=== PATIENT | female | born 2000 | race Caucasian/White ===

== ENCOUNTER 2020-12-18 11:51 | Emergency (ER) | payer OTHER ==
[~2020-12-18 11:51] MED LIST: BENTYL10 MG PO
[2020-12-18 14:01] LABS: BILIRUBIN NEGATIVE (NEGATIVE); BLOOD NEGATIVE Ery/uL (NEGATIVE); CLARITY CLEAR (CLEAR); COLOR YELLOW (YELLOW); GLUCOSE (U) NORMAL (NORMAL); LEUKOCYTES NEGATIVE Leu/uL (NEGATIVE); NITRITE NEGATIVE (NEGATIVE); PROTEIN NEGATIVE (NEGATIVE); UROBILINOGEN 0.2 mg/dL (0.2-1.0); pH 6.5 (5.0-9.0)
[2020-12-18] MEDS ORDERED: COLACE100 MG PO (15:10)
[2020-12-18] MEDS ORDERED: MILK OF MA400 MG/5 M PO (15:10)
== END 2020-12-18 15:45 | disposition home or self-care (01) ==
LOC: FER 11:51
PROVIDERS: Emergency Medicine
DX: O99.611 Diseases of the digestive system complicating pregnancy, first trimester (principal); K59.00 Constipation, unspecified; O21.9 Vomiting of pregnancy, unspecified; O99.891 Other specified diseases and conditions complicating pregnancy; R63.0 Anorexia; Z87.19 Personal history of other diseases of the digestive system; Z88.6 Allergy status to analgesic agent; Z3A.10 10 weeks gestation of pregnancy
CPT/HCPCS: 81003; 99284

== ENCOUNTER 2021-03-06 06:28 | Inpatient (IN) | payer OTHER ==
[~2021-03-06 06:28] MED LIST changes: +COLACE100 MG PO; +MILK OF MA400 MG/5 M PO
[2021-03-06 07:24] LABS: BILIRUBIN NEGATIVE (NEGATIVE); BLOOD NEGATIVE Ery/uL (NEGATIVE); CLARITY CLEAR (CLEAR); COLOR YELLOW (YELLOW); GLUCOSE (U) NORMAL (NORMAL); LEUKOCYTES NEGATIVE Leu/uL (NEGATIVE); NITRITE NEGATIVE (NEGATIVE); PROTEIN NEGATIVE (NEGATIVE); UROBILINOGEN 0.2 mg/dL (0.2-1.0); pH 7.5 (5.0-9.0)
[2021-03-06 07:29] LABS: AMPHETAMINES NEGATIVE (NEGATIVE); BARBITURATES NEGATIVE (NEGATIVE); ECSTASY (MDMA) NEGATIVE (NEGATIVE); MARIJUANA (THC) NEGATIVE (NEGATIVE); METHADONE NEGATIVE (NEGATIVE); OPIATES NEGATIVE (NEGATIVE); OXYCODONE NEGATIVE (NEGATIVE)
[2021-03-06 07:58] LABS: BASOPHIL 0.1 % (0-2); EOSINOPHIL 0.2 % (0-5); HCT 35.3 % (37.0-47.0); HGB 12.2 g/dl (12.5-16.0); LYMPHOCYTE 7.7 % (15-48); MCH 31.3 pg (25.0-31.0); MCHC 34.6 g/dL (32.0-36.0); MCV 90.5 fL (78.0-100.0); MONOCYTE 7.6 % (0-12); MPV 9.9 fL (6.0-9.5); NEUTROPHIL 83.6 % (41-80); NRBC 0; PLT 242 K/uL (150-400); RDW 12.9 % (11.5-14.0); WBC 21.6 K/uL (4.0-10.5)
[2021-03-06 08:21] LABS: BILIRUBIN - TOTAL 0.3 mg/dL (0.2-1.0); BUN/CREAT RATIO (CALC) 8.6 RATIO; CREATININE 0.58 mg/dL (0.51-0.95); GLOBULIN (CALCULATION) 3.2 g/dL; POTASSIUM 3.6 mmol/L (3.5-5.1); TOTAL PROTEIN 6.2 g/dL (6.4-8.2)
[2021-03-07 07:31] LABS: BASOPHIL 0.4 % (0-2); EOSINOPHIL 2.1 % (0-5); HCT 29.7 % (37.0-47.0); HGB 10.2 g/dl (12.5-16.0); LYMPHOCYTE 17.7 % (15-48); MCH 31.8 pg (25.0-31.0); MCHC 34.3 g/dL (32.0-36.0); MCV 92.5 fL (78.0-100.0); MONOCYTE 9.4 % (0-12); MPV 9.8 fL (6.0-9.5); NEUTROPHIL 69.4 % (41-80); NRBC 0; PLT 180 K/uL (150-400); RBC 3.21 M/uL (4.20-5.40); RDW 13.3 % (11.5-14.0); WBC 11.6 K/uL (4.0-10.5)
[2021-03-07 07:45] LABS: ALBUMIN 2.3 g/dL (3.4-5.0); BILIRUBIN - TOTAL 0.2 mg/dL (0.2-1.0); CREATININE 0.5 mg/dL (0.51-0.95); GLOBULIN (CALCULATION) 3.1 g/dL; TOTAL PROTEIN 5.4 g/dL (6.4-8.2)
[2021-03-08 06:28] LABS: BASOPHIL 0.3 % (0-2); EOSINOPHIL 1.8 % (0-5); HCT 32.5 % (37.0-47.0); LYMPHOCYTE 20.1 % (15-48); MCH 31.5 pg (25.0-31.0); MCHC 33.8 g/dL (32.0-36.0); MCV 93.1 fL (78.0-100.0); MONOCYTE 7.6 % (0-12); MPV 9.8 fL (6.0-9.5); NEUTROPHIL 69.3 % (41-80); NRBC 0; PLT 204 K/uL (150-400); RBC 3.49 M/uL (4.20-5.40); RDW 13.4 % (11.5-14.0); WBC 11.7 K/uL (4.0-10.5)
[2021-03-08 06:59] LABS: ALBUMIN 2.4 g/dL (3.4-5.0); BILIRUBIN - TOTAL 0.1 mg/dL (0.2-1.0); BUN/CREAT RATIO (CALC) 8.9 RATIO; CREATININE 0.45 mg/dL (0.51-0.95); GLOBULIN (CALCULATION) 3.5 g/dL; POTASSIUM 3.2 mmol/L (3.5-5.1); TOTAL PROTEIN 5.9 g/dL (6.4-8.2)
[2021-06-17] MEDS ORDERED: ONDANSETRON HCL4 MG PO (23:11)
[2021-06-17] MEDS ORDERED: VITAMIN D310 MC3 PO (23:11)
== END 2021-03-08 19:08 | disposition other institution (70) | DRG 831 ==
LOC: FOD 06:28 → FOB 06:29 → FOD 09:47 → FOB 03-08 19:08
PROVIDERS: ADMIT Obstetrics & Gynecology
DX: O98.812 Other maternal infectious and parasitic diseases complicating pregnancy, second trimester (principal); A41.9 Sepsis, unspecified organism; O41.1220 Chorioamnionitis, second trimester, not applicable or unspecified; O60.02 Preterm labor without delivery, second trimester; Z3A.21 21 weeks gestation of pregnancy; R51.9 Headache, unspecified; Z20.822 Contact with and (suspected) exposure to COVID-19; Z80.8 Family history of malignant neoplasm of other organs or systems
CPT/HCPCS: 36415; 80053; 80305; 81003; 83605; 85025; 87040; 87070; 87077; 87088; 87491; 87591; 93005; J0595; J0696; J2405; J7120; U0002

== ENCOUNTER 2021-07-05 02:35 | Inpatient (IN) | payer OTHER ==
[~2021-07-05] VITALS: Ht 160 cm; Wt 57.6 kg
[~2021-07-05 02:35] MED LIST changes: +ONDANSETRON HCL4 MG PO; +VITAMIN D310 MC3 PO
[2021-07-05 03:12] LABS: BILIRUBIN 1+ mg/dL (NEGATIVE); BLOOD 3+ Ery/uL (NEGATIVE); CLARITY CLOUDY (CLEAR); COLOR ORANGE (YELLOW); GLUCOSE (U) NORMAL (NORMAL); LEUKOCYTES 2+ Leu/uL (NEGATIVE); NITRITE NEGATIVE (NEGATIVE); PROTEIN 1+ mg/dL (NEGATIVE); SPECIFIC GRAVITY 1.025 (1.001-1.030)
[2021-07-05 03:20] LABS: HCT 40.7 % (37.0-47.0); HGB 13.7 g/dl (12.5-16.0); MCHC 33.7 g/dL (32.0-36.0); MPV 10.6 fL (6.0-9.5); RBC 4.73 M/uL (4.20-5.40); RDW 12.8 % (11.5-14.0)
[2021-07-05 03:21] LABS: BACTERIA 1+; SQUAMOUS EPITHELIAL CELLS >50; URINARY RBC TNTC
[2021-07-05 14:11] LABS: AMPHETAMINES NEGATIVE (NEGATIVE); BARBITURATES NEGATIVE (NEGATIVE); ECSTASY (MDMA) POSITIVE (NEGATIVE); MARIJUANA (THC) NEGATIVE (NEGATIVE); METHADONE NEGATIVE (NEGATIVE); OPIATES NEGATIVE (NEGATIVE); OXYCODONE NEGATIVE (NEGATIVE)
[2021-07-06 07:00] LABS: HCT 30.5 % (37.0-47.0); HGB 10.2 g/dl (12.5-16.0); MCH 29.5 pg (25.0-31.0); MCHC 33.4 g/dL (32.0-36.0); MCV 88.2 fL (78.0-100.0); MPV 10.6 fL (6.0-9.5); RBC 3.46 M/uL (4.20-5.40); RDW 12.9 % (11.5-14.0); WBC 19.1 K/uL (4.0-10.5)
[2021-07-06 12:55] LABS: BARBITURATES NEGATIVE (NEGATIVE); ECSTASY (MDMA) NEGATIVE (NEGATIVE); MARIJUANA (THC) NEGATIVE (NEGATIVE); METHADONE NEGATIVE (NEGATIVE); OPIATES NEGATIVE (NEGATIVE)
[2021-07-06 12:56] LABS: AMPHETAMINES NEGATIVE (NEGATIVE); OXYCODONE NEGATIVE (NEGATIVE)
[2021-07-06] MEDS ORDERED: VITAMIN D325 MC1 PO (19:26)
[2021-07-06] MEDS ORDERED: PRENATAL FORMU1 EACH PO (19:26)
== END 2021-07-07 13:28 | disposition home or self-care (01) | DRG 807 ==
LOC: FOD 02:35 → FOB 02:41 → FOD 03:36 → FOB 03:37
PROVIDERS: Specialist; ADMIT Obstetrics & Gynecology
PROC: 10E0XZZ Delivery of Products of Conception, External Approach (ICD-10-PCS; principal; 2021-07-05)
PROC: 0HQ9XZZ Repair Perineum Skin, External Approach (ICD-10-PCS; 2021-07-05)
PROC: 3E0R3GC Introduction of Other Therapeutic Substance into Spinal Canal, Percutaneous Approach (ICD-10-PCS; 2021-07-07)
DX: O42.02 Full-term premature rupture of membranes, onset of labor within 24 hours of rupture (principal); Z37.0 Single live birth; Z3A.38 38 weeks gestation of pregnancy; O70.0 First degree perineal laceration during delivery; Z20.822 Contact with and (suspected) exposure to COVID-19; O99.02 Anemia complicating childbirth; Z88.6 Allergy status to analgesic agent
CPT/HCPCS: 36415; 80305; 81001; 84112; J2300; J2405; J2540; J7120; U0002